=== PATIENT | male | born 1965 | race Caucasian/White ===

== ENCOUNTER 2024-05-20 07:24 | Day surgery (SDC) | payer OTHER, SELFPAY ==
--- NOTE | 2024-05-19 08:46 | P.CONAN_ITS ---
Documented by User: Meaghan Hammond NP 05/19/24 08:46 HPI - Anesthesia Eval Consult details Narrative: 59yo M for Colonoscopy [facility] Past Medical History Medical History Hx of nasal polyp Sleep apnea Hay fever Social History Social History Patient Tobacco Use Status: Never used Tobacco Use of substances other than those prescribed or required for medical reasons: No Are you DNR?: No Advance Directives: No Advance Directives Information Provided: Yes Meds Allergies Allergy/AdvReac Type Severity Reaction Status Date / Time No Known Allergies Allergy Verified 05/20/24 06:57 Home Medications ?Medication ?Instructions ?Recorded ?Confirmed ?Last Taken ?Type cetirizine 10 mg tablet (Zyrtec) 10 mg PO DAILY 05/18/24 05/18/24 Unknown History mometasone 50 mcg/actuation nasal 2 spray intranasal DAILY 05/18/24 05/18/24 Unknown History spray multivitamin 1 tab PO DAILY 05/18/24 05/18/24 Unknown History Exam Height,Weight and Vital Signs: Height 5 ft 11 in Weight 97.522 kg Assessment and Plan Assessment Anesthesia Assessment: Chart Reviewed Documented by User: Kindra Leroy MD 05/20/24 08:19 [facility] Past Medical History Medical History Hx of nasal polyp Sleep apnea Hay fever Surgical History History of Problems with Anesthesia: No Social History Social History Patient Tobacco Use Status: Never used Tobacco Use of substances other than those prescribed or required for medical reasons: No Are you DNR?: No Advance Directives: No Advance Directives Information Provided: Yes Meds Allergies Allergy/AdvReac Type Severity Reaction Status Date / Time No Known Allergies Allergy Verified 05/20/24 06:57 Home Medications ?Medication ?Instructions ?Recorded ?Confirmed ?Last Taken ?Type cetirizine 10 mg tablet (Zyrtec) 10 mg PO DAILY 05/18/24 05/18/24 Unknown History mometasone 50 mcg/actuation nasal 2 spray intranasal DAILY 05/18/24 05/18/24 Unknown History spray multivitamin 1 tab PO DAILY 05/18/24 05/18/24 Unknown History Exam Airway Mallampati Class: III TM Dist: >3cm Neck ROM: Full Loose/Missing/Broken Teeth: No Heart: RRR Lungs: CTA Assessment and Plan Assessment Anesthesia Assessment: Anesthesia Plan Discussed Final Anesthetic Review History of Problems with Anesthesia: No NPO: Yes ASA Class: III Final Preanesthetic Review: Meds/Allgs Chart Reviewed, Consent Obtained/Reviewed and Anes Risks/Benef Reviewed Patient Risk: Intermediate Procedure Risk: Low Anesthetic Plan Anesthetic Plan: MAC: Disposition: Standard PACU
[2024-05-20 07:35] VITALS: BMI 30.5
[2024-05-20 07:45] VITALS: BP 137/82; PULSE 56; RESP 16; TEMP 36.6; O2SAT 97
[2024-05-20] MEDS: Lactated Ringers 1,000 ML 100 ML IVCONT (07:55)
[2024-05-20 09:19] VITALS: BP 125/81; PULSE 58; RESP 16; TEMP 36.2; O2SAT 94
--- NOTE | 2024-05-20 09:22 | PM.OP ---
Brief Operative Note Date of Service: 05/20/24 Pre-op diagnosis: Screening Post-op diagnosis: other (Colon polyp) Procedure: Colonoscopy to the cecum and TI with biopsy and removal of polyp Surgeon: Bruce Myrick MD Anesthesia: MAC Was an Health Insurance Sales Agent used for this Procedure?: No Estimated blood loss (mL): 2.0 Pathology: other (A. Polyp at 20cm) Condition: stable Disposition: PACU
[2024-05-20 09:34] VITALS: BP 125/73; PULSE 41; RESP 18; O2SAT 95
--- NOTE | 2024-05-20 10:06 | OP_ITS ---
DATE OF SERVICE: 05/20/2024 SURGEON: Bruce Myrick MD INDICATIONS: The patient presents for followup of colorectal cancer screening and personal history of tubular adenoma of the colon. Full consent has been obtained from him for this, including risks of bleeding and perforation. PREOPERATIVE DIAGNOSIS: POSTOPERATIVE DIAGNOSIS: PROCEDURE PERFORMED: ESTIMATED BLOOD LOSS: COMPLICATIONS: ANESTHESIA: Medication used; monitored anesthesia care. ASSISTANTS: SPECIMENS: PREOPERATIVE DIAGNOSES: Colorectal cancer screening and personal history of tubular adenoma of the colon. POSTOPERATIVE DIAGNOSES: Colorectal cancer screening and personal history of tubular adenoma of the colon, small colon polyp, diverticulosis, and internal hemorrhoids. PROCEDURES PERFORMED: Colonoscopy to the cecum and terminal ileum with biopsy and removal of polyp. DESCRIPTION OF PROCEDURE: The patient was placed in the left lateral decubitus position. The digital rectal exam revealed no abnormalities. The Olympus video pediatric colonoscope was entered into the rectum and advanced easily to the cecum. Once in the cecum, I did identify normal-appearing cecal pouch with appendiceal orifice and a normal-appearing ileocecal valve. The terminal ileum was cannulated and appeared normal. The scope was withdrawn back in the colon. The entire cecum and ileocecal valve appeared normal. Scope was slowly withdrawn assessing all mucosal surfaces carefully. Preparation was excellent. At 30 cm, was a flat, approximately 4 mm polyp, which was biopsied and completely removed with cold biopsy forceps. I did not visualize any other polyps, colitis, nor angiodysplasia. There was a mild amount of sigmoid diverticulosis. In the rectum, scope was retroflexed visualizing internal hemorrhoids, but no other pathology. The rectal mucosa appeared normal. Scope was straightened and withdrawn from the patient. He tolerated the procedure well and was returned to recovery area in stable condition. IMPRESSION: 1. Colon polyp. 2. Diverticulosis. 3. Internal hemorrhoids. PLAN: The results of biopsy will be checked. I would recommend a repeat colonoscopy in 5 years. He will otherwise see me on a p.r.n. basis. This has been discussed with his . MD CHRIS Og/ANDREIA / [id number]
== END 2024-05-20 10:14 | disposition home or self-care (01) ==
PROVIDERS: PCP Internal Medicine; Visit Provider Internal Medicine
PROC: 0DJD8ZZ Inspection of Lower Intestinal Tract, Via Natural or Artificial Opening Endoscopic (ICD-10-PCS; CPT 45378; principal; 2024-05-20 08:30)
DX: Z12.11 Encounter for screening for malignant neoplasm of colon (principal); Z86.010 Personal history of colon polyps; D12.5 Benign neoplasm of sigmoid colon; K57.30 Diverticulosis of large intestine without perforation or abscess without bleeding; K64.8 Other hemorrhoids; G47.33 Obstructive sleep apnea (adult) (pediatric); J30.1 Allergic rhinitis due to pollen; Z99.89 Dependence on other enabling machines and devices; Z79.899 Other long term (current) drug therapy
CPT/HCPCS: 45380; 88305; J2704

== ENCOUNTER 2024-08-07 13:00 | Outpatient (REF) | payer BC, SELFPAY ==
[2024-08-07 13:26] LABS: MANUAL DIFF FLAG NO
[2024-08-07 15:03] LABS: Basophils Absolute Auto 0.1 X10*3/uL (0.0-0.2); Basophils Percent Auto 0.6 % (0-2); Eosinophils Absolute Auto 0.2 X10*3/uL (0.0-0.4); Eosinophils Percent Auto 2.4 % (0-4); Hematocrit 40.4 % (42.0-52.0); Imm Gran Abs Auto 0.02 X10*3/uL (0.00-0.03); Imm Gran Pct Auto 0.2 % (0.0-0.4); Lymphocytes Absolute Auto 1.7 X10*3/uL (1.2-4.9); Lymphocytes Percent Auto 20.4 % (20-40); Mean Corpuscular HGB Conc 34.7 g/dl (31.0-36.0); Mean Corpuscular Hemoglobin 29.7 pg (27.0-33.0); Mean Corpuscular Volume 85.6 fL (80.0-98.0); Mean Platelet Volume 10.8 fL (9.4-12.4); Monocytes Absolute Auto 0.8 X10*3/uL (0.1-1.2); Monocytes Percent Auto 9.5 % (2-11); Neutrophils Absolute Auto 5.5 x10*3/uL (2.0-8.3); Neutrophils Percent Auto 66.9 % (45-73); Platelet Count 293 X10*3/uL (160-400); Red Blood Count 4.72 X10*6/uL (4.60-5.80); Red Cell Distribution Width 11.8 % (11.0-16.0); White Blood Count 8.3 X10*3/uL (4.8-10.8)
[2024-08-07 15:30] LABS: Alanine Aminotransferase 20 U/L (0-40); Albumin Level 4.4 g/dL (3.5-5.0); Alkaline Phosphatase 71 U/L (39-117); Anion Gap 12 (12-20); Aspartate Amino Transferase 14 U/L (5-37); Bilirubin Total 0.6 mg/dL (0.0-1.0); Blood Urea Nitrogen 14 mg/dL (9-16); Calcium 9.6 mg/dL (8.4-10.2); Carbon Dioxide 28 mmol/L (22-29); Chloride 106 mmol/L (96-108); Cholesterol 184 mg/dL (<200); Estimated Glomerular Filt Rate > 60; Glucose Random 93 mg/dL (60-115); HDL Cholesterol 30 mg/dL (>40); LDL Cholesterol Calculated 125 mg/dL (<100); Sodium 142 mmol/L (135-145); Total Protein 7.5 g/dL (6.5-8.0); Triglycerides 147 mg/dL (<150)
[2024-08-07 15:52] LABS: Prostate Specific Antigen 2.36 ng/mL (<0.05-4.0)
== END 2024-08-07 13:01 | disposition home or self-care (01) ==
LOC: HO.LAB 13:00
PROVIDERS: PCP Internal Medicine; Visit Provider Internal Medicine
DX: E78.5 Hyperlipidemia, unspecified (principal); G47.33 Obstructive sleep apnea (adult) (pediatric); Z86.010 Personal history of colon polyps; Z12.5 Encounter for screening for malignant neoplasm of prostate
CPT/HCPCS: 36415; 80053; 80061; 84153; 85025

== ENCOUNTER 2025-11-11 15:55 | Outpatient (AMB) | payer BC, SELFPAY ==
--- OUTSIDE RECORDS SUMMARY | 2024-05-20 03:30 | XMS_ITS ---
Author Organization [facility] Address [address] [place] [address] Care Team Providers Care Barrel Marker Name Role Phone Amy (RETIRED) Schuyler SOW Primary Care Provide Bruce Kim Unavailable [phone] REASON FOR VISIT screening hx of polyps Problems Problem Type SNOMED Code ICD Code Onset Dates Problem Status W/U Status Risk Notes Problem Diverticular disease of colon (299114937) Diverticulosis of large intestine without perforation or abscess without bleeding (K57.30) Active confirmed Encounters Encounter Location Date Provider Diagnosis [facility] [place] [facility] [address] [place] [address] [id number] 05/20/2024 Bruce Myrick Encounter for scre ening colonoscopy Z12.11 ; Colon polyps K63.5 ; Diverticulosis of large intestine without perforation or abscess without bleeding K57.30 and Other hemorrhoids K64.8 Assessments Encounter Date Diagnosis (ICD Code) Assessment Notes Treatment Notes Treatment Clinical Notes Section Notes 05/20/2024 Encounter for screening colonoscopy (ICD-10 - Z12.11) 05/20/2024 Colon polyps (ICD-10 - K63.5) 05/20/2024 Diverticulosis of large intestine without perforation or abscess without bleeding (ICD-10 - K57.30) 05/20/2024 Other hemorrhoids (ICD-10 - K64.8) Plan Of Treatment No Information Progress Notes * MINERVA VOGELDOB:1965 (60 yo M)Acc No.[id number]:05/20/2024 COLON WITH MAC Patient: MINERVA PERDUE Provider: Yasemin Myrick MD :1965 A ge:59 Y S ex:Male Date:05/20/2024 Address:[address] [place] [address], [id number] Pcp:Schuyler Reyes (RETIRED )MD Subjective: * Chief Complaints: * S creening hx of polyps Assessment: * Assessment: 1. E ncounter for screening colonoscopy - Z12.11 (Primary) 2 . C olon polyps - K63.5 3 . D iverticulosis of large intestine without perforation or abscess without bleeding - K57.30 4 . O ther hemorrhoids - K64.8 Plan: * Procedure Codes: 4 5380 COLONOSCOPY AND BIOPSY, Modifiers: 33 Billing Information: * Procedure Codes: 62303 COLONOSCOPY AND BIOPSY. Modifiers: 33 * The named appointment provid er may or may not be the originator of this progress note, and it is not deemed complete until electronically signed by the appointment provider. Sign off status: Pending * Provider: Yasemin Myrick MD Date: 0 05/20/2024 Generated for Sanjuana spencer/Andres/Katianasmitting on: 1 01/12/2025 11:10 PM EST
--- NOTE | 2025-11-11 15:58 | A.OFFPC_ITS ---
Vital Signs 11/11/25 16:05 Height 5 ft 9.88 in Weight 211 lb BMI 30.4 BP 144/88 H Blood Pressure Location Lt brachial Position Sitting Respiration 18 Pulse 52 Pulse Source Pulse Oximeter Temp 97.7 F Temp Source Temporal Artery Scan Pulse Oximetry (%) 98 Oxygen Delivery Method Room Air Intake Visit Reasons: New Patient ANTHONY Dr Reyes Crew Scheduler Required: No Accompanied by: Self / Same As Patient Allergies No Known Allergies Allergy (Verified 11/11/25 15:58) Medication List - Last Reconciled 11/11/25 by Jose Schmid MD aspirin 81 mg PO DAILY PRN betamethasone dipropionate 0.05% appl topical BID PRN cetirizine (Zyrtec) 10 mg PO DAILY clindamycin phosphate 1% topical docosahexaenoic acid-epa 120-180 mg (Fish Oil) 1 cap PO DAILY PRN ketoconazole 2% topical magnesium 200 mg PO DAILY PRN mometasone 50 mcg/actuation 2 sprays intranasal DAILY multivitamin 1 tab PO DAILY vitamin D3-vitamin K2 1,250-200 mcg caps PO Tobacco use date assessed: 11/11/25 Dental Screening Dental Screen Date: 11/11/25 Did you have a dental visit in the last 12 months?: Yes Did you have a dental problem in the last 6 months where you did not have access to dental care?: No Was dental information given to patient?: Patient has dentist HPI HPI Comments History of Present Illness Details History of Present Illness The patient is a 60 year old male presenting for a general health check-up, to address his need for a new CPAP machine, and discuss his elevated blood pressure readings. The patient has a history of obstructive sleep apnea and uses a CPAP machine, which now has a signal indicating its life is over. He has had a sleep study in the past which was significant, but he is not currently waking up gasping for air. He has been checking his blood pressure at home and noted readings around the 140s. He also reports a low pulse, sometimes in the 40s, which prevents his home device from taking a reading, but he is asymptomatic with this and does not experience loss of consciousness. He wishes to try exercise to lower his blood pressure before starting medication. Review of blood work from last year showed an elevated LDL cholesterol of 125. The patient has a history of eczema, folliculitis, and rosacea on his face. The patient takes aspirin 81 mg intermittently, not daily. He also takes multiple supplements, including vitamin D, a multivitamin, magnesium, and cetirizine, stating his diet is not great. He had a colonoscopy last year. Medical History: - Obstructive sleep apnea, on CPAP - Hypertension, based on home readings i n the 140s and in-office reading of 144/88 mmHg - Hypercholesterolemia, with LDL of 125 last year - Eczema - Folliculitis - Rosacea - Hay fever - Asymptomatic bradycardia, with pulse r eported in the 40s Surgical History: - No past surgeries reported. Medications: - Aspirin 81 mg, taken intermittently fo r heart Echovox - Vitamin D - Multivitamin - Magnesium - Cetirizine Family History: - Father: from lung cancer, was a heavy smoker. - Denies family history of heart disease or diabetes. Diagnostic Results: - Labs (from last year): Reports elevate d LDL cholesterol of 125. - Tests and Diagnostics: Patient reports a significant result on a prior sleep study. - Screening Tests: Colonoscopy performed last year. Social History - Substance Use: Patient drinks alcohol once a week, having 3-4 drinks per occasion. - Tobacco Use: Denies current smoking; r eports trying cigarettes in high school. - Illicit Drug Use: Patient denies use o f marijuana, heroin, or cocaine. - Nutritional Intake: Reports he does no t eat well. [facility] Medical History (Updated 11/11/25 @ 16:24 by Jose Schmid MD) Hyperlipidemia Poor high blood pressure control Annual physical exam Folliculitis Eczema RACHEL (obstructive sleep apnea) Hx of nasal polyp Sleep apnea Hay fever Social History Housing: House Patient Tobacco Use Status: Former Tobacco user Years Smoked: 1 year e-Cigarette/Vaping Use: Never Used service: No Current occupational status: employed Current occupation: [employer] Questionnaire PHQ-9 Over the last 2 weeks, how often have you been bothered by any of the following problems? 1. Little interest or pleasure in doing things: not at all 2. Feeling down, depressed, or hopeless: not at all 3. Trouble falling or staying asleep, or sleeping too much: not at all 4. Feeling tired or having little energy: not at all 5. Poor appetite or overeating: not at all 6. Feeling bad about yourself - or that you are a failure or have let yourself or your family down: not at all 7. Trouble concentrating on things, such as reading the newspaper or watching television: not at all 8. Moving or speaking so slowly that other people could have noticed. Or the opposite - being so fidgety or restless that you have been moving around a lot more than usual: not at all 9. Thoughts that you would be better off or of hurting yourself in some way: not at all Total score: 0 Depression Screening Interpretation: Negative Depression Screening Done: Yes 07276 - PHQ-9 Billing: Yes Source: Developed by Drs. Bruce Silva, Sole Albarado, Eagle Zavala and colleagues, with an educational marily from [employer]. Thrive Questionnaire Date Thrive assessed: 11/11/25 I am a: Patient What is your living situation today?: I have a steady place to live Within the past 12 months, did the food you bought not last and you didn't have the money to get more?: Never true Within the past 12 months, did you worry whether your food would run out before you got money to buy more?: Never true Do you have trouble paying for medicines?: No Do you have trouble getting transportation to medical appointments?: No Do you have trouble paying your heating and electricity bill?: No Do you have trouble taking care of your child, family member or friend?: No Do you have trouble with day-to-day activities such as bathing, preparing meals, shopping, managing finances, etc.?: No Are you currently unemployed and looking for a job?: No Are you interested in more education?: No THRIVE Score: 0 AUDIT C Alcohol Use Questionnaire (AUDIT-C) 1. How often do you have a drink containing alcohol?: 2-4 times a month 2. How many drinks containing alcohol do you have on a typical day when you are drinking?: 3 or 4 3. How often do you have six or more drinks on one occasion?: Never Total Score: 3 Score Reviewed/Action Taken: Yes JAMES-7 AMB Questionnaire JAMES-7 Date JAMES - 7 assessed: 11/11/25 Feeling nervous, anxious, or on edge: 0 = Not at all Not being able to stop or control worryin = Not at all Worrying too much about different things: 0 = Not at all Trouble relaxin = Not at all Being so restless that it is hard to sit still: 0 = Not at all Becoming easily annoyed or irritable: 0 = Not at all Feeling afraid as if something awful might happen: 0 = Not at all Total JAMES-7 score (0-4 normal; 5-9 mild; 10-14 moderate; 15-21 severe): 0 Source: Developed by Drs. Bruce Silva, Sole Albarado, Eagle Zavala and colleagues, with an educational marily from [employer]. Review of Systems Narrative Review of Systems - General: Reports feeling well overall. - Cardiovascular: Reports low pulse rates in the 40s at home. Denies syncope or lightheadedness. - Respiratory: Denies waking up gasping for air. - Integumentary: Reports eczema, folliculitis, and rosacea. - Allergic/Immunologic: Reports hay fever. All systems reviewed & are unremarkable except as reviewed in HPI and above Physical exam (Primary Care) Vital Signs: Last Vital Signs Temp 97.7 F 11/11/25 16:05 Pulse 52 11/11/25 16:05 Resp 18 11/11/25 16:05 BP 144/88 H 11/11/25 16:05 Pulse Ox 98 11/11/25 16:05 Oxygen Delivery Method Room Air 11/11/25 16:05 BMI result Body Mass Index 30.4 Tobacco/Smoking Status: Tobacco use Status Tobacco use date assessed 11/11/25 11/11/25 16:08 Patient Tobacco Use Status Former Tobacco user 11/11/25 16:08 e-Cigarette/Vaping Use Never Used 11/11/25 16:08 PHQ-9: PHQ-9 Score PHQ-9: Total score 0 11/11/25 16:16 Depression Screening Interpretation: Negative Thrive Assessment: Date of Thrive Assessment Date Thrive assessed 11/11/25 11/11/25 16:16 Narrative Physical Exam General: +Alert and oriented, Well nourished, No acute distress. Eye: Pupils are equal, round and reactive to light, Intact accommodation, Extraocular movements are intact, Normal conjunctiva, Vision unchanged. HENT: Normocephalic, Atraumatic, Tympanic membranes are clear, Normal hearing, Oral mucosa is moist, No pharyngeal erythema, Ear canals patent. Respiratory: Lungs CTA bilaterally, No wheeze, Respirations are non-labored. Cardiovascular: Regular rate, Regular rhythm, S1 auscultated, S2 auscultated, No murmur, Good pulses equal in all extremities, Normal peripheral perfusion, No edema. Gastrointestinal: Soft, Non-tender, Non-distended, Normal bowel sounds, No organomegaly. Musculoskeletal: Normal range of motion, Normal strength, No tenderness, No swelling, No deformity, Normal gait. Integumentary: Warm, Dry, [place], Intact. Eczema, folliculitis, and rosacea noted on the face. Neurologic: Alert, Oriented, Normal sensory, Normal motor function, No focal defects, Cranial Nerves II-XII are grossly intact, Normal deep tendon reflexes. Psychiatric: Cooperative, Appropriate mood & affect, Normal judgment. Coding Level of Care Code New Pt Level 4 (98222) New Pt Prev Care 40-64y(65790) Diagnoses Poor high blood pressure control I10 RACHEL (obstructive sleep apnea) G47.33 Hyperlipidemia, unspecified hyperlipidemia type E78.5 Hyperlipidemia type: unspecified Annual physical exam Z00.00 Additional Codes PHQ-9 - 94939 - PHQ-9 Billing: Yes ([id number]) Comment [id number] Assessment & Plan Assessment & Plan (1) Poor high blood pressure control: Comment: - Patient's blood pressure is elevated at 144/88 mmHg, and he reports home readings over 140. - He meets the criteria for hypertension. - Treatment with medication is indicated, but the patient prefers to first attempt lifestyle modifications, including exercise and dietary changes. - He was advised to monitor his blood pressure at home, log the readings, and if they remain elevated, medication will be initiated. - Plan includes reducing salt, processed foods, and red meat. - Follow-up is scheduled in 3 months. Code(s): I10 - Essential (primary) hypertension Category: Medical (2) RACHEL (obstructive sleep apnea): Comment: - Patient uses a CPAP machine which is nearing the end of its lifespan. - A new sleep study will be ordered to reassess his condition before ordering a new machine. Code(s): G47.33 - Obstructive sleep apnea (adult) (pediatric) Category: Medical (3) Hyperlipidemia: Comment: - Last year's blood work showed an elevated LDL of 125. - The patient meets criteria for treatment. - Recommended lifestyle changes including diet modification to improve cholesterol levels. - Current blood work was ordered to re-evaluate lipid panel. Code(s): E78.5 - Hyperlipidemia, unspecified Category: Medical Qualifiers: Hyperlipidemia type: unspecified Qualified Code(s): E78.5 - Hyperlipidemia, unspecified (4) Annual physical exam: Comment: - A comprehensive blood work panel was ordered. - The patient was advised to improve his diet and be more active. - Discussed his intermittent use of aspirin and advised that it is not effective if not taken daily. - Advised to reduce alcohol intake. - The patient has had the first two COVID-19 shots but declines further vaccinations, including the flu shot. - He is up to date on colonoscopy and does not meet criteria for lung cancer screening. Code(s): Z00.00 - Encounter for general adult medical examination without abnormal findings Category: Medical Plan: Health Maintenance: - Screening: Patient had a colonoscopy last year. - Vaccinations: Patient has had the first two COVID-19 shots but declines further shots and the annual flu shot. - Lifestyle: Advised to improve diet by cutting out salt, processed foods, and red meat. - Lifestyle: Advised to increase physical activity. - Substance Use: Advised to be mindful of his alcohol intake, as it is bordering high. - Labs: Ordered blood work to check labs, including cholesterol. Patient was informed and verbally consented to the use of an ambient scribe for clinic note documentation during this visit. Vital signs reviewed. Comprehensive history, review of systems, and physical exam completed. Medications, allergies, and problem list reviewed and updated. Counseling provided on nutrition, regular exercise, sleep hygiene, and moderation of alcohol use. Discussed age-appropriate screenings (mammogram, colonoscopy, Pap, bone density) and immunizations (flu, COVID, shingles, Tdap). Screened for depression, fall risk, and home safety; no current concerns. Discussed stress management, dental and vision care, and importance of ongoing preventive follow-up. Routine labs ordered for metabolic and lipid screening. Patient educated on healthy lifestyle and agrees with the plan. Plan Assessment and Plan 1. Hypertension - Patient's blood pressure is elevated at 144/88 mmHg, and he reports home readings over 140. - He meets the criteria for hypertension. - Treatment with medication is indicated, but the patient prefers to first attempt lifestyle modifications, including exercise and dietary changes. - He was advised to monitor his blood pressure at home, log the readings, and if they remain elevated, medication will be initiated. - Plan includes reducing salt, processed foods, and red meat. - Follow-up is scheduled in 3 months. 2. Obstructive Sleep Apnea - Patient uses a CPAP machine which is nearing the end of its lifespan. - A new sleep study will be ordered to reassess his condition before ordering a new machine. 3. Hypercholesterolemia - Last year's blood work showed an elevated LDL of 125. - The patient meets criteria for treatment. - Recommended lifestyle changes including diet modification to improve cholesterol levels. - Current blood work was ordered to re-evaluate lipid panel. 4. Health Maintenance - A comprehensive blood work panel was ordered. - The patient was advised to improve his diet and be more active. - Discussed his intermittent use of aspirin and advised that it is not effective if not taken daily. - Advised to reduce alcohol intake. - The patient has had the first two COVID-19 shots but declines further vaccinations, including the flu shot. - He is up to date on colonoscopy and does not meet criteria for lung cancer screening. Plan Patient was informed and verbally consented to the use of an ambient scribe for clinic note documentation during this visit. 1. Hypertension - The patient's blood pressure was 144/88 mmHg in the office, and he reports home readings over 140, meeting the criteria for hypertension. - Treatment is indicated, but will be held for now as per the patient's request to first attempt lifestyle changes, including exercise. - Instructed to monitor and log blood pressure at home; medications will be started if readings remain elevated. - Advised to reduce salt, processed foods, and red meat. - Plan to follow up in 3 months to re-evaluate. 2. Obstructive Sleep Apnea - The patient's CPAP machine has a signal indicating the end of its life. - A new sleep study will be ordered to qualify for a new CPAP machine. 3. Hypercholesterolemia - Blood work from last year showed an elevated LDL cholesterol of 125. - Given his hypertension and hypercholesterolemia, treatment is warranted for both conditions. - Advised dietary changes, including cutting out salt, processed foods, and high-red meat consumption to help improve cholesterol. - Ordered new blood work today to check current levels. Discussion Notes I discussed with the patient that his in-office blood pressure of 144/88 mmHg, along with his reported home readings in the 140s, meets the criteria for hyper tension. I also noted his elevated LDL cholesterol of 125 from last year, and explained that based on both high blood pressure and high cholesterol, he should be on treatment for both. The patient expressed a preference to try lifestyle changes, such as exercise and diet, before starting medications, and I agreed to hold off on prescriptions for now. I instructed him to monitor his blood pressure at home and record the readings, with the understanding that we will start medication if they remain elevated. I explained the need for a new sleep study to get a prescription for a new CPAP machine, as his current one is at the end of its life. We discussed dietary changes, including reducing salt, processed foods, and red meat, to help improve both his blood pressure and cholesterol. I informed him that inconsistent aspirin use is ineffective. I recommended he get the COVID and flu shots but respected his wish to decline them. I ordered blood work and explained he could go to the lab to have it drawn, and that I would contact him if any results were positive. We scheduled a follow-up appointment in three months to reassess his progress. Patient Instructions - We will order a new sleep study for you. Based on the results, we can order a new CPAP machine. - Start checking your blood pressure at home and write down the numbers. If they stay high, we will need to start you on medication. - Try to make changes to your diet, such as cutting out salt, processed foods, and red meat, to help lower your blood pressure and cholesterol. - Increase your physical activity and exercise more. - Go to the lab across the street to get your blood work done today. - Be mindful of your alcohol intake, as drinking 3-4 drinks weekly is a high amount. - We have scheduled a follow-up visit for you in three months. Orders: Orders Complete Blood Count Auto Diff Today Z00.00 - Encounter for general adult medical examination without abnormal findings Hemoglobin A1c Today Z00.00 - Encounter for general adult medical examination without abnormal findings HIV Ab/Ag Today Z00.00 - Encounter for general adult medical examination without abnormal findings RT PSG in-lab sleep study Today G47.33 - Obstructive sleep apnea (adult) (pediatric) Comprehensive Met. Panel Today Z00.00 - Encounter for general adult medical examination without abnormal findings Hepatitis A,B,C Profile Today Z00.00 - Encounter for general adult medical examination without abnormal findings Lipid Panel Today Z00.00 - Encounter for general adult medical examination without abnormal findings Microalbumin, Random (w Creat) Today Z00.00 - Encounter for general adult medical examination without abnormal findings Syphilis Screen Today Z00.00 - Encounter for general adult medical examination without abnormal findings TSH reflex Free T4 Today Z00.00 - Encounter for general adult medical examination without abnormal findings Vitamin D 25-OH Total Today Z00.00 - Encounter for general adult medical examination without abnormal findings CT NG by PCR Urine Today Z00.00 - Encounter for general adult medical examination without abnormal findings
[2025-11-11 16:05] VITALS: BP 144/88; PULSE 52; RESP 18; TEMP 36.5; O2SAT 98; BMI 30.4
--- OUTSIDE RECORDS SUMMARY | 2025-11-11 23:10 | XMS_ITS | Patient Health Record ---
Author Organization [facility] Address [address] [place] [address] Care Team Providers Care Car Shakeout Operator Name Role Phone Amy (RETIRED) Schuyler SOW Primary Care Provide r Bruce Garcia Unavailable [phone] Allergies No Known Allergies Reason For Referral No Information Medications Medication SIG (Take, Route, Frequency, Duration) Notes Start Date End Date Status Tacrolimus 0.1 % Ointment External; Duration: 30 Not-Taking/PRN Ketoconazole 2 % Shampoo APPLY SHAMPOO DAILY UNTIL IMPROVED AND THEN TWO TO THREE TIMES A WEEK FOR MAINTENANCE DIRECTED External; Duration: 30 Not-Taking/PRN Nasonex Active Clindamycin Phosphate 1 % Solution External; Duration: 15 Not-Taking/PRN ZyrTEC Active Multivitamin - Tablet 1 tablet Orally On ce a day; Duration: 30 day(s) Active Social History Social History Drugs/Alcohol: Social Info Question Answer Notes Alcohol Screen Did you have a drink containing alcohol in the past year? Yes How often did you have a drink containing alcohol in the past year? 2 to 4 times a month (2 points) How many drinks did you have on a typical day when you were drinking in the past year? 1 or 2 drinks (0 point) How often did you have 6 or more drinks on one occasion in the past year? 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[employer]- Section Notes: Nonsmoker; occasional alcoho l Nonsmoker; occasional alcoho l Problems Problem Type SNOMED Code ICD Code Onset Dates Problem Status W/U Status Risk Notes Problem Colon cancer screening (395121191) Colon cancer screening (Z12.11) Active confirmed Problem Screening for malignant neoplasm of colon (859953439) Encounter for screening for malignant neoplasm of colon (Z12.11) Active confirmed Problem History of adenomatous polyp of colon (586993381) History of adenomatous polyp of colon (Z86.010) Active confirmed Problem Diverticular disease of colon (966542200) Diverticulosis of large intestine without perforation or abscess without bleeding (K57.30) Active confirmed Problem Screening for malignant neoplasm of rectum (592677088) Encounter for screening for malignant neoplasm of rectum (Z12.12) Active confirmed Problem Preprocedural examination (658451356719566) Preprocedural examination (Z01.818) Active confirmed Plan Of Treatment Pending Test Test Name Order Date Pathology 05/20/2024 Future Test Test Name Order Date COLONOSCOPY 11/22/2015 COLONOSCOPY 01/08/2024 Insurance Providers Payer Name Payer Address Payer Phone Subscriber Number Group Number Insured Name Patient Relationship to Insured Coverage Start Date Coverage End Date [facility] [address] [place] [phone] [id number] MINERVA VOGEL Self - patient is the insured Medical (General) History Medical History History ICD Code Hay fever/allergies Denies NC,DM,CVA,Lung disease,renal dise ase Sleep apnea- uses cpap machine Screening Colonoscopy 01/2016 with the re moval of a small tubular adenoma Surgical History Surgery Date(Month/Year) Nasal polyps
--- OUTSIDE RECORDS SUMMARY | 2025-11-11 23:11 | XMS_ITS | Clinical Summary ---
Author Organization Formerly [facility] Address [address] [place] [phone] Phone Care Team Providers Care Chemical Treatment Operator Name Role Phone Schuyler Reyes MD Primary Care Provider Allergies Active Allergy Reactions Criticality Noted Date Comments Hay Fever And Allergy Relief 023 Medications No known medications Social History Tobacco Use Types Packs/Day Years Used Date Smoking Tobacco: Never Assessed Education Answer Date Recorded Are you interested in more education? Not on estelita e 07/31/2023 Are you concerned about learning? Not on file 07/31/2023 No 07/31/2023 No 07/31/2023 Digital Access Answer Date Recorded No 07/31/2023 No 07/31/2023 Reliable internet access at home? Not on file 07/31/2023 Device with a working camera? Not on file Sex and Gender Information Value Date Recorded Sex Assigned at Not on file Legal Sex Male 11:12 AM EDT Gender Identity Not on file Sexual Orientation Not on file Plan of Treatment Health Maintenance Due Date Last Done Comments Adult Td,Tdap Booster 1963 LIPID PANEL 1963 DEPRESSION SCREENING 1975 SMOKING Hx and SMOKELESS TOBACCO SCREENING 1976 HEPATITIS C SCREENING 1981 HIV ONE-TIME SCREENING (18-6 5 YEARS) 1981 COLOGUARD 2008 COLONOSCOPY 2008 COLORECTAL CANCER SCREENING 2008 FIT TEST 2008 FOBT 2008 SIGMOIDOSCOPY 2008 VIRTUAL COLONOSCOPY 2008 PNEUMOCOCCAL VACCINES (50+ years) (1 of 1 - PCV) 2013 ZOSTER VACCINES (1 of 2) 2013 INFLUENZA VACCINE (#1) 2025 COVID-19 VACCINE (3 - 2024-2 6 season) 2025 01/14/2021, 12/17/2020 RSV VACCINE (1 - 1-dose 75+ series) 2038 HEPATITIS A VACCINES Aged Out No long er eligible based on patient's age to complete this topic HIB VACCINES Aged Out No longer eligi ble based on patient's age to complete this topic MENINGOCOCCAL VACCINES (ACWY) Aged Out No longer eligible based on patient's age to complete this topic MENINGOCOCCAL VACCINES (B) Aged Out N o longer eligible based on patient's age to complete this topic Medical Devices Not on file Insurance ([place]) [address] [place] [address] [facility] Care Teams Chemical Treatment Operator Relationship Specialty Start Date End Date Schuyler Reyes MD [address] [place] [address] [place] [id number] PCP - General Internal Medicine 07/31/23 Additional Source Comments The information contained in this document represents components of the legal health record. It is not the complete legal health record.[facility]
== END 2025-11-11 16:24 | disposition home or self-care (01) ==
PROVIDERS: PCP Student in an Organized Health Care Education/Training Program; Visit Provider Student in an Organized Health Care Education/Training Program
DX: Z00.00 Encounter for general adult medical examination without abnormal findings (principal); I10 Essential (primary) hypertension; G47.33 Obstructive sleep apnea (adult) (pediatric); E78.5 Hyperlipidemia, unspecified

== ENCOUNTER → 2025-11-11 15:55 | Outpatient (BNVA) | payer BC, SELFPAY | PROVIDERS: PCP Internal Medicine; Visit Provider Student in an Organized Health Care Education/Training Program | DX: Z13.31 Encounter for screening for depression (principal); Z13.39 Encounter for screening examination for other mental health and behavioral disorders | CPT/HCPCS: 96127 ==

== ENCOUNTER 2025-11-15 12:07 | Outpatient (REF) | payer BC, SELFPAY ==
[2025-11-15 12:22] LABS: MANUAL DIFF FLAG NO
[2025-11-15 13:27] LABS: Hematocrit 42.6 % (42.0-52.0); Hemoglobin 14.4 g/dl (14.0-18.0); Imm Gran Abs Auto 0.02 X10*3/uL (0.00-0.03); Imm Gran Pct Auto 0.2 % (0.0-0.4); Lymphocytes Absolute Auto 1.7 X10*3/uL (1.2-4.9); Mean Corpuscular HGB Conc 33.8 g/dl (31.0-36.0); Mean Corpuscular Hemoglobin 29.0 pg (27.0-33.0); Mean Corpuscular Volume 85.7 fL (80.0-98.0); NRBC Abs Auto 0.000 X10*3/uL (0.0-0.012); NRBC Pct Auto 0.0 /100WBC (0.0-0.2); Platelet Count 188 X10*3/uL (160-400); Red Blood Count 4.97 X10*6/uL (4.60-5.80); White Blood Count 8.2 X10*3/uL (4.8-10.8)
[2025-11-15 13:50] LABS: Microalbum/Creatinine Ratio Ur 8.9 ug/mg cr (<30)
[2025-11-15 14:01] LABS: Alanine Aminotransferase 17 U/L (0-40); Albumin Level 4.9 g/dL (3.5-5.0); Alkaline Phosphatase 65 U/L (39-117); Anion Gap 11 (12-20); Aspartate Amino Transferase 20 U/L (5-37); Blood Urea Nitrogen 21 mg/dL (9-16); Calcium 9.6 mg/dL (8.4-10.2); Carbon Dioxide 27 mmol/L (22-29); Chloride 109 mmol/L (96-108); Cholesterol 185 mg/dL (<200); Estimated Glomerular Filt Rate > 60; HDL Cholesterol 38 mg/dL (>40); Potassium 4.2 mmol/L (3.3-5.1); Sodium 143 mmol/L (135-145); Total Protein 7.2 g/dL (6.5-8.0); Triglycerides 129 mg/dL (<150)
[2025-11-15 15:08] LABS: CT PCR Urine NOT DETECTED (Not Detect.); NG PCR Urine NOT DETECTED (Not Detect.)
[2025-11-16 04:23] LABS: Syphilis Screen Nonreactive (Nonreactive)
[2025-11-16 04:52] LABS: HBS Num1 0.00 mIU/mL (0-7.99); HBc Num1 0.07 S/CO (0.00-0.79); HBsAGNum1 0.49 S/CO (0.00-0.99); HIV Num 1 0.09 S/CO (0.00-0.99); Hepatitis A Antibody IgM 0.14 Index (0-0.79); Hepatitis B Surface Antigen Negative (Negative); ~HepC Num1 0.08 S/CO (0.00-0.79); ~Hepatitis A Antibody IgM Nonreactive (Nonreactive); ~Hepatitis B Surface Antibody NONREACTIVE (Nonreactive); ~Hepatitis C Antibody Nonreactive (Nonreactive)
== END 2025-11-15 12:08 | disposition home or self-care (01) ==
LOC: HO.LAB 12:07
PROVIDERS: PCP Student in an Organized Health Care Education/Training Program; Visit Provider Student in an Organized Health Care Education/Training Program
DX: Z00.00 Encounter for general adult medical examination without abnormal findings (principal); Z13.6 Encounter for screening for cardiovascular disorders; Z13.1 Encounter for screening for diabetes mellitus
CPT/HCPCS: 80053; 80061; 82043; 82306; 82570; 83036; 84443; 85025; 86704; 86706; 86709; 86780; 86803; 87340; 87389; 87491; 87591